=== PATIENT | female | born 1995 | race Caucasian/White ===

== ENCOUNTER 2017-05-19 04:52 | Inpatient (IN) | payer BC ==
--- NOTE | 2017-05-15 10:31 | PCM.LDHP ---
L&D History of Present Illness - General Date of Service: 05/14/17 Admit Problem/Dx: Admission Diagnosis/Problem Admission Diagnosis/Problem Source of Information: Patient History Limitations: Reports: No Limitations - History of Present Illness Introduction:: 22 y/o SURY 05/24/17 EGA 38w4d and at DOS EGA 39w2d. GBS negative Patient has history of anemia at at 03/04/17 H/H 10.8/32.0 repeat H/H 04/23/17 29.4/9.9 and repeat 05/14/17 H/H 11.1/33.0platelets [id number]. Plan repeat CS Friday Improves with: Reports: None Worsens with: Reports: None Associated Symptoms: Reports: N - Related Data Allergies/Adverse Reactions: Allergies Allergy/AdvReac Type Severity Reaction Status Date / Time azithromycin Allergy Hives Verified 10/18/15 10:45 Home Medications: Home Meds Multivitamin with Minerals [Multiple Vitamin] 1 tab PO DAILY 02/20/15 [History] Acetaminophen [Tylenol] 325 mg PO Q6H PRN #50 tab 10/18/15 [Rx] Hydrocodone/Acetaminophen [Matthews 5-325 Tablet] 1 - 2 each PO Q6H PRN #15 tablet 10/18/15 [Rx] Ibuprofen [Motrin] 200 - 600 mg PO Q6H PRN #50 tab 10/18/15 [Rx] Past Medical History Other HEENT History: glasses : 4 Para: 1 (1021) LMP (Approximate): Social & Family History - Tobacco Use Smoking Status *Q: Current Every Day Smoker Years of Tobacco use: 3 Packs/Tins Daily: 0.5 - Alcohol Use Days Per Week of Alcohol Use: 0 - Recreational Drug Use Recreational Drug Use: No Drug Use in Last 12 Months: No H&P Review of Systems - Review of Systems: Review Of Systems: See Below General: Reports: No Symptoms HEENT: Reports: No Symptoms Pulmonary: Reports: No Symptoms Cardiovascular: Reports: No Symptoms Gastrointestinal: Reports: No Symptoms Genitourinary: Reports: No Symptoms Musculoskeletal: Reports: No Symptoms Skin: Reports: No Symptoms Psychiatric: Reports: No Symptoms Neurological: Reports: No Symptoms Hematologic/Lymphatic: Reports: No Symptoms Immunologic: Reports: No Symptoms L&D Exam - Exam Exam: See Below - Vital Signs Weight: 170 lb - OB Specific Fundal Height In cm: 38 Movement: Active Heart Tones: Present Heart Tones per Min: 158 Heart Rate (FHR) Variability: Moderate (6-25 bmp) Presentation: Vertex Estimated Weight: 8.0 - Exam General: Alert, Oriented HEENT: Mucosa Moist & [place] Neck: Supple, Trachea Midline Lungs: Clear to Auscultation, Normal Respiratory Effort Cardiovascular: Regular Rate, Regular Rhythm Abdomen: Normal Bowel Sounds, Soft, Pelvis Stable Genitourinary: Normal external exam Back Exam: Normal Inspection, Full Range of Motion Extremities: Normal Inspection Skin: Warm, Dry, Intact Psychiatric: Alert, Normal Affect, Normal Mood - Problem List (1) 38 weeks gestation of SNOMED Code(s): 49198492 ICD Code: Z3A.38 - 38 WEEKS GESTATION OF Status: Acute (2) Previous delivery affecting SNOMED Code(s): 171596753, 198575483 ICD Code: O34.219 - MATERNAL CARE FOR UNSP TYPE SCAR FROM PREVIOUS DEL Status: Acute (3) 39 weeks gestation of SNOMED Code(s): 79203864 ICD Code: Z3A.39 - 39 WEEKS GESTATION OF Status: Acute Problem Details: will be EGA 39w2d day of surgery Problem List Initiated/Reviewed/Updated: No Assessment/Plan Comment:: Plan repeat CS Friday05/19/2017 at EGA 39w2d SURY 05/24/2017
[~2017-05-19 04:52] MED LIST: Sodium Chloride 0.9% 10 ML Syringe FLUSH PRN
[2017-05-19] MEDS ORDERED: Oxytocin/Lactated Ringers 10 UNIT/1,000 ML BAG IV SCH (05:00)
[2017-05-19] MEDS ORDERED: Lactated Ringers 1,000 ML IV SCH (05:00)
[2017-05-19] MEDS ORDERED: Citric Acid/Sodium Citrate Solution 30 ML Cup PO ONE (05:00)
[2017-05-19] MEDS ORDERED: Oxytocin 10 Units/1 ML SDV IV ONE (05:00)
[2017-05-19] MEDS ORDERED: ceFAZolin 2 GM in Premix Bag 1 BAG IV ONE (05:00)
[2017-05-19] MEDS ORDERED: Metoclopramide 10 MG/2 ML SDV IVPUSH ONE (05:00)
[2017-05-19] MEDS ORDERED: Bupivacaine 0.5% 30 ML SDV ONE (06:08)
[2017-05-19] MEDS ORDERED: Morphine PF 10 MG/10 ML SDV ONE (07:31)
[2017-05-19] MEDS ORDERED: ceFAZolin 1 GM Vial ONE (07:43)
[2017-05-19] MEDS ORDERED: Oxytocin 10 Units/1 ML SDV ONE (07:50)
[2017-05-19] MEDS ORDERED: Phenylephrine/Normal Saline 100 MCG/ML 10 ML Syringe ONE (07:50)
[2017-05-19] MEDS ORDERED: Lactated Ringers 1,000 ML ONE (08:09)
--- NOTE | 2017-05-19 08:17 | PCM.OPNOTE ---
- General Post-Op/Procedure Note Date of Surgery/Procedure: 05/19/17 Operative Procedure(s): Repeat section 86908 Pre Op Diagnosis: Previous section 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 Anesthesia Technique: Spinal Primary Surgeon: Nba Roman Secondary Surgeon: Nicole Gould Anesthesia Provider: Pierce Almonte Fluid Replacement, Intraop: 1,600 Output, Urine Amount: 460 EBL in mLs: 650 Drain/Tube Comments:: Byers catheter to gravity drainage Complications: None Condition: Good Free Text/Narrative:: Patient was transported to operating room #1 and placed under spinal anesthesia in the supine position with wedge under right hip right flank SCDs in place and functioning prior surgery patient received Ancef 2 g intravenously prior to surgery timeout performed confirming name did worsen plan procedure as repeat section adequate level of anesthesia was confirmed after preparing and draping the patient in sterile fashion and brought to the operating room 20 mL of 0.25% Marcaine injected in the subcuticular space in the area of the planned incision the old incision was marked incision made and care was sharp section to into the anterior fascia peritoneal cavity was entered without difficulty but flap created pushed caudad low segment transverse performed delivering a female liveborn on Friday05/19/17 at 0744 hrs. Apgars 9/ 9 [address] Branham factory maintenance manager in attendance. Cord blood collected from three-vessel cord placenta removed manually and the endometrial cavity inspected additional remnants of membranes removed cervical patency assured vaginal pack and sharp count correct 1 uterine incision closed in 2 layers first layer running locking suture of 0 Monocryl second layer horizontal imbricating layer modified Jose Alejandro sponge needle pack asthma sharp count correct 2 both ovaries and tubes were normal clot screen from the gutters and cul-de- sac the uterus replaced into the abdominal cavity and the abdominal cavity closed with #1 Prolene subcutaneous tissue irrigated and electrocautery used to free up scar tissue from the old incision and the skin was closed with 3-0 Monocryl on Thai needle Dermabond Prineo applied clots cleaned from the vagina and patient transported to postanesthesia care unit in satisfactory condition no blood transfusions were required
--- NOTE | 2017-05-19 08:31 | PCM.POSTAN ---
POST ANESTHESIA ASSESSMENT - MENTAL STATUS Mental Status: alert, oriented - VITAL SIGNS Pulse Rate: 98 SaO2: 99 Resp Rate: 11 Blood Pressure: 110/68 Temperature: 36.6 C - RESPIRATORY Respiratory Status: respiratory rate WNL, airway patent, O2 saturation stable - CARDIOVASCULAR CV Status: pulse rate WNL, blood pressure stable - GASTROINTESTINAL GI Status: no symptoms - PAIN Pain Score: 0 - POST OP HYDRATION Hydration Status: adequate & stable
--- NOTE | 2017-05-19 08:39 | PCM.PREANE ---
Preanesthetic Assessment - Procedure Proposed Procedure: Repeat - Anesthesia/Transfusion/Family Hx Anesthesia History: Prior Anesthesia Without Reaction Family History of Anesthesia Reaction: No Transfusion History: No Prior Transfusion(s) - Review of Systems General: No Symptoms Pulmonary: No Symptoms Cardiovascular: No Symptoms Gastrointestinal: No symptoms Neurological: No Symptoms Other: Reports: None - Physical Assessment NPO Status Date: 05/19/17 NPO Status Time: 00:00 Pulse: 87 O2 Sat by Pulse Oximetry: 98 Respiratory Rate: 20 Blood Pressure: 125/77 Temperature: 36.6 C Vital Signs: Last Vital Signs Temp 36.6 C 05/19/17 08:31 Pulse 98 05/19/17 08:31 Resp 11 L 05/19/17 08:31 BP 110/68 05/19/17 08:31 Pulse Ox 99 05/19/17 08:31 Height: 1.78 m Weight: 79.379 kg ASA Class: 2 Mental Status: Alert & Oriented x3 Airway Class: Mallampati = 2 Dentition: Reports: Normal Dentition Thyro-Mental Finger Breadths: 3 Mouth Opening Finger Breadths: 3 ROM/Head Extension: Other Lungs: Clear to auscultation Cardiovascular: Regular Rate, Regular Rhythm, No Murmurs - Lab Values: Laboratory Last Values Blood Type O POSITIVE 05/19/17 05:06 Gel Antibody Screen Negative 05/19/17 05:06 CBC 05/14/17 WBC - 18.5 Hgb - 11.1 HCT - 33 PLT - 355 - Allergies Allergies/Adverse Reactions: Allergies Allergy/AdvReac Type Severity Reaction Status Date / Time azithromycin Allergy Hives Verified 10/18/15 10:45 - Blood Blood Available: No - Anesthesia Plan Pre-Op Medication Ordered: Antacids (reglan/bicitra) - Acknowledgements Anesthesia Type Planned: Spinal Pt an Appropriate Candidate for the Planned Anesthesia: Yes Alternatives and Risks of Anesthesia Discussed w Pt/Guardian: Yes Pt/Guardian Understands and Agrees with Anesthesia Plan: Yes PreAnesthesia Questionnaire HEENT History: Reports: Other (See Below) Other HEENT History: wears glasses 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: , 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 - Past Surgical History Head Surgeries/Procedures: Reports: None HEENT Surgical History: Reports: None Female Surgical History: Reports: Section, D&C - SUBSTANCE USE Smoking Status *Q: Former Smoker (Quit within last month after 5 yr hx of 1/2- 1ppd) Tobacco Use Within Last Twelve Months: Cigarettes Second Hand Smoke Exposure: No Days Per Week of Alcohol Use: 0 Recreational Drug Use History: No - HOME MEDS Home Medications: Home Meds Ferrous Sulfate [Iron] 325 mg PO DAILY 05/19/17 [History] Vits #90/Iron Fum/FA [ Formula] 1 each PO DAILY 05/19/17 [ History] - CURRENT (IN HOUSE) MEDS Current Meds: Current Medications Lactated Ringer's (Ringers, Lactated) 1,000 mls @ 125 mls/hr IV ASDIRECTED BRIGETTE Last Admin: 05/19/17 05:30 Dose: 125 mls/hr Oxytocin/Lactated Ringer's (Pitocin In Lr 10 Units/1,000 Ml) 10 unit in 1,000 mls @ 500 mls/hr IV TITRATE BRIGETTE PRN Reason: Protocol Ketorolac Tromethamine (Toradol) 30 mg IVPUSH ONETIME [facility] Sodium Chloride (Saline Flush) 10 ml FLUSH ASDIRECTED PRN PRN Reason: Keep Vein Open Discontinued Medications Bupivacaine HCl (Marcaine 0.5%) Confirm Administered Dose 30 ml .ROUTE .STK-MED ONE Stop: 05/19/17 06:09 Cefazolin Sodium (Ancef) Confirm Administered Dose 2 gm .ROUTE .STK-MED ONE Stop: 05/19/17 07:44 Citric Acid/Sodium Citrate (Bicitra Solution) 30 ml PO ONETIME ONE Stop: 05/19/17 05:01 Last Admin: 05/19/17 07:12 Dose: 30 ml Cefazolin Sodium/Dextrose 2 gm (/ Premix) 50 mls @ 100 mls/hr IV ONETIME ONE Stop: 05/19/17 05:29 Lactated Ringer's (Ringers, Lactated) Confirm Administered Dose 1,000 mls @ as directed .ROUTE .STK-MED ONE Stop: 05/19/17 08:10 Metoclopramide HCl (Reglan) 10 mg IVPUSH ONETIME ONE Stop: 05/19/17 05:01 Last Admin: 05/19/17 07:12 Dose: 10 mg Morphine Sulfate (Duramorph Pf) Confirm Administered Dose 10 mg .ROUTE .STK-MED ONE Stop: 05/19/17 07:32 Oxytocin (Pitocin) 10 unit IV ONETIME ONE Stop: 05/19/17 05:01 Oxytocin (Pitocin) Confirm Administered Dose 10 unit .ROUTE .STK-MED ONE Stop: 05/19/17 07:51 Phenylephrine HCl (Phenylephrine In Ns 100 Mcg/Ml) Confirm Administered Dose 1 mg .ROUTE .STK-MED ONE Stop: 05/19/17 07:51
[2017-05-19] MEDS ORDERED: Ketorolac 30 MG/ML SDV IVPUSH SCH (08:45)
[2017-05-19] MEDS ORDERED: diphenhydrAMINE 50 MG/ML SDV IVPUSH PRN (09:36)
[2017-05-19] MEDS ORDERED: ePHEDrine 50 MG/ML SDV IVPUSH PRN (09:36)
[2017-05-19] MEDS ORDERED: Naloxone 0.4 MG/ML SDV IVPUSH PRN (09:36)
[2017-05-19] MEDS ORDERED: Sodium Chloride 0.9% 10 ML Syringe FLUSH PRN (09:36)
[2017-05-19] MEDS ORDERED: Acetaminophen 325 MG Tab PO PRN (09:36)
[2017-05-19] MEDS ORDERED: Dextrose 5%-0.45% NaCl 1,000 ML IV SCH (09:36)
[2017-05-19] MEDS ORDERED: Dextrose 5%-Lactated Ringers 1,000 ML IV SCH (09:36)
[2017-05-19] MEDS ORDERED: Lanolin 100% Cream 7 GM Tube TOP PRN (09:36)
[2017-05-19] MEDS ORDERED: Ondansetron 4 MG/2 ML SDV IV PRN (09:36)
[2017-05-19] MEDS: Ketorolac 30 MG/ML SDV IVPUSH SCH ×2 (15:10→21:50)
[2017-05-19] MEDS: Simethicone 80 MG Tab.Chew PO SCH ×4 (15:15→23:54)
[2017-05-20] MEDS: Acetaminophen/oxyCODONE 325-5 MG Tab PO PRN ×5 (00:03→19:28)
[2017-05-20] MEDS: Ketorolac 30 MG/ML SDV IVPUSH SCH (02:53)
[2017-05-20] MEDS: Docusate Sodium 100 MG Cap PO PRN ×2 (06:00→19:28)
--- NOTE | 2017-05-20 08:39 | PCM48HPAN ---
Post Anesthesia Note - EVALUATION WITHIN 48HRS OF ANESTHETIC Vital Signs in Normal Range: Yes Patient Participated in Evaluation: Yes Respiratory Function Stable: Yes Airway Patent: Yes Cardiovascular Function Stable: Yes Hydration Status Stable: Yes Pain Control Satisfactory: Yes Nausea and Vomiting Control Satisfactory: Yes Mental Status Recovered: Yes - COMMENTS/OBSERVATIONS Free Text/Narrative:: Pt reports doing well as is baby. Has some moderate incisional discomfort this morning after spinal morphine has worn off. ambulating, taking p.o., using restroom, no fever, chills, nausea, or vomiting. no pain at spinal site, and spinal has completely resolved
[2017-05-20] MEDS: Simethicone 80 MG Tab.Chew PO SCH ×4 (09:54→22:58)
[2017-05-20] MEDS: Ibuprofen 600 MG Tab PO PRN ×3 (11:41→23:38)
--- NOTE | 2017-05-20 12:34 | PCM.SN ---
- Free Text/Narrative Note: POD#1 Afebrile, breast feeding, incision normal, no heavy vaginal bleeding no leg cramping.
[2017-05-21] MEDS: Acetaminophen/oxyCODONE 325-5 MG Tab PO PRN ×2 (02:52→10:13)
[2017-05-21] MEDS: Ibuprofen 600 MG Tab PO PRN (05:33)
[2017-05-21 05:40] VITALS: BP 117/78
--- NOTE | 2017-05-21 07:31 | PCM.DCSUM1 ---
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 Anesthesia Technique: Spinal Primary Surgeon: Nba Roman Secondary Surgeon: Nicole Gould Anesthesia Provider: Pierce Almonte Fluid Replacement, Intraop: 1,600 Output, Urine Amount: 460 EBL in mLs: 650 Drain/Tube Comments:: Byers catheter to gravity drainage Complications: None Condition: Good Free Text/Narrative:: Patient was transported to operating room #1 and placed under spinal anesthesia in the supine position with wedge under right hip right flank SCDs in place and functioning prior surgery patient received Ancef 2 g intravenously prior to surgery timeout performed confirming name did worsen plan procedure as repeat section adequate level of anesthesia was confirmed after preparing and draping the patient in sterile fashion and brought to the operating room 20 mL of 0.25% Marcaine injected in the subcuticular space in the area of the planned incision the old incision was marked incision made and care was sharp section to into the anterior fascia peritoneal cavity was entered without difficulty but flap created pushed caudad low segment transverse performed delivering a female liveborn on Friday05/19/17 at 0744 hrs. Apgars 9/ 9 weight [address] Branham crutch maker in attendance. Cord blood collected from three-vessel cord placenta removed manually and the endometrial cavity inspected additional remnants of membranes removed cervical patency assured vaginal pack and sharp count correct 1 uterine incision closed in 2 layers first layer running locking suture of 0 Monocryl second layer horizontal imbricating layer modified Jose Alejandro sponge needle pack asthma sharp count correct 2 both ovaries and tubes were normal clot screen from the gutters and cul-de- sac the uterus replaced into the abdominal cavity and the abdominal cavity closed with #1 Prolene subcutaneous tissue irrigated and electrocautery used to free up scar tissue from the old incision and the skin was closed with 3-0 Monocryl on Thai needle Dermabond Prineo applied clots cleaned from the vagina and patient transported to postanesthesia care unit in satisfactory condition no blood transfusions were required HPI Initial Comments: [facility] Post-Op/Procedure Note Patient Name: INGA CORONA Date of : 89 Patient Status: Inpatient Attending Provider: Nba Roman Date: 05/19/17 08:11 Initialization Date: 05/19/17 08:11 - General Post-Op/Procedure Note Date of Surgery/Procedure: 05/19/17 Operative Procedure(s): Repeat section 72538 Pre Op Diagnosis: Previous section 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 Anesthesia Technique: Spinal Primary Surgeon: Nba Roman Secondary Surgeon: Nicole Gould Anesthesia Provider: Pierce Almonte Fluid Replacement, Intraop: 1,600 Output, Urine Amount: 460 EBL in mLs: 650 Drain/Tube Comments:: Byers catheter to gravity drainage Complications: None Condition: Good Free Text/Narrative:: Patient was transported to operating room #1 and placed under spinal anesthesia in the supine position with wedge under right hip right flank SCDs in place and functioning prior surgery patient received Ancef 2 g intravenously prior to surgery timeout performed confirming name did worsen plan procedure as repeat section adequate level of anesthesia was confirmed after preparing and draping the patient in sterile fashion and brought to the operating room 20 mL of 0.25% Marcaine injected in the subcuticular space in the area of the planned incision the old incision was marked incision made and care was sharp section to into the anterior fascia peritoneal cavity was entered without difficulty but flap created pushed caudad low segment transverse performed delivering a female liveborn on Friday05/19/17 at 0744 hrs. Apgars 9/ 9 weight [address] Branham crutch maker in attendance. Cord blood collected from three-vessel cord placenta removed manually and the endometrial cavity inspected additional remnants of membranes removed cervical patency assured vaginal pack and sharp count correct 1 uterine incision closed in 2 layers first layer running locking suture of 0 Monocryl second layer horizontal imbricating layer modified Jose Alejandro sponge needle pack asthma sharp count correct 2 both ovaries and tubes were normal clot screen from the gutters and cul-de- sac the uterus replaced into the abdominal cavity and the abdominal cavity closed with #1 Prolene subcutaneous tissue irrigated and electrocautery used to free up scar tissue from the old incision and the skin was closed with 3-0 Monocryl on Thai needle Dermabond Prineo applied clots cleaned from the vagina and patient transported to postanesthesia care unit in satisfactory condition no blood transfusions were required Brief History: [facility] . Post-Op/Procedure Note. [facility]: [id number]. Date of : Patient Status: Inpatient. Attending Provider: Nba Romanount Number: [id number]. Date: 05/19/17 08:11Initialization Date: 05/19/17 08:11. - General Post-Op/Procedure Note. Date of Surgery/Procedure: 05/19/17. Operative Procedure(s): Repeat section 93886. Pre Op Diagnosis: Previous section. 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 Anesthesia Technique: Spinal. Primary Surgeon: Nba Roman. Secondary Surgeon: Nicole Gould. Anesthesia Provider: Pierce Almonte. Fluid Replacement, Intraop: 1,600. Output, Urine Amount: 460. EBL in mLs: 650. Drain/Tube Comments:: Byers catheter to gravity drainage. Complications: None. Condition: Good. Free Text/Narrative:: Patient was transported to operating room #1 and placed under spinal anesthesia in the supine position with wedge under right hip right flank SCDs in place and functioning prior surgery patient received Ancef 2 g intravenously prior to surgery timeout performed confirming name did worsen plan procedure as repeat section adequate level of anesthesia was confirmed after preparing and draping the patient in sterile fashion and brought to the operating room 20 mL of 0.25% Marcaine injected in the subcuticular space in the area of the planned incision the old incision was marked incision made and care was sharp section to into the anterior fascia peritoneal cavity was entered without difficulty but flap created pushed caudad low segment transverse performed delivering a female liveborn on Friday05/19/17 at 0744 hrs. Apgars 9/9 weight [address] Branham crutch maker in attendance. Cord blood collected from three-vessel cord placenta removed manually and the endometrial cavity inspected additional remnants of membranes removed cervical patency assured vaginal pack and sharp count correct 1 uterine incision closed in 2 layers first layer running locking suture of 0 Monocryl second layer horizontal imbricating layer modified Jose Alejandro sponge needle pack asthma sharp count correct 2 both ovaries and tubes were normal clot screen from the gutters and cul-de-sac the uterus replaced into the abdominal cavity and the abdominal cavity closed with #1 Prolene subcutaneous tissue irrigated and electrocautery used to free up scar tissue from the old incision and the skin was closed with 3-0 Monocryl on Thai needle Dermabond Prineo applied clots cleaned from the vagina and patient transported to postanesthesia care unit in satisfactory condition no blood transfusions were required - Discharge Data Discharge Date: 05/21/17 Discharge Disposition: Home, Self-Care 01 Condition: Good - Discharge Diagnosis/Problem(s) (1) 38 weeks gestation of SNOMED Code(s): 26722485 ICD Code: Z3A.38 - 38 WEEKS GESTATION OF Status: Acute Current Visit: No (2) Previous delivery affecting SNOMED Code(s): 983922914, 969987562 ICD Code: O34.219 - MATERNAL CARE FOR UNSP TYPE SCAR FROM PREVIOUS DEL Status: Acute Current Visit: Yes (3) 39 weeks gestation of SNOMED Code(s): 76236549 ICD Code: Z3A.39 - 39 WEEKS GESTATION OF Status: Acute Current Visit: Yes Problem Details: will be EGA 39w2d day of surgery - Patient Summary/Data Operative Procedure(s) Performed: Repeat section 97819 Complications: none Consults: none Hospital Course: uneventful - Patient Instructions Diet: Heart Healthy Diet Driving: Do Not Drive (2 weeks) Showering/Bathing: May Shower, No Tub Bathing/Swimming (x6 weeks) Wound/Incision Care: Keep Operative Site/Wound Site Clean and Dry Notify Provider of: Fever, Increased Pain, Swelling and Redness, Drainage, Nausea and/or Vomiting - Discharge Plan Prescriptions/Med Rec: Ibuprofen [Motrin] 600 mg PO Q6H #50 tablet oxyCODONE HCl/Acetaminophen [Percocet 5-325 mg Tablet] 1 each PO Q8H #15 tablet Home Medications: Home Meds Ferrous Sulfate [Iron] 325 mg PO DAILY 05/19/17 [History] Vit 90/Iron Fum/Folic [ Formula] 1 each PO DAILY 05/19/17 [ History] Acetaminophen [Tylenol] 650 mg PO Q4H PRN #0 tablet 05/21/17 [Rx] Acetaminophen/oxyCODONE [Percocet 325-5 MG] 1 tab PO Q8H PRN #15 tablet [Rx] Docusate Sodium [Colace] 100 mg PO Q12H PRN #0 cap 05/21/17 [Rx] Ibuprofen [IJD: Ibuprofen] 600 mg PO Q6H PRN #50 tablet 05/21/17 [Rx] Ibuprofen [Motrin] 600 mg PO Q6H #50 tablet 05/21/17 [Rx] oxyCODONE HCl/Acetaminophen [Percocet 5-325 mg Tablet] 1 each PO Q8H #15 tablet 05/21/17 [Rx] Patient Handouts: Smoking Cessation, Tips for Success, [id number]-Coxn, Smoking Hazards Referrals: Nba Roman MD [Physician] - (4 weeks 06/16/2017 has appointment) - Discharge Summary/Plan Comment DC Time >30 min.: No - Patient Data Vitals - Most Recent: Last Vital Signs Temp 97.3 F 05/21/17 05:35 Pulse 65 05/21/17 05:35 Resp 12 05/21/17 04:00 BP 117/78 05/21/17 05:35 Pulse Ox 98 05/21/17 05:35 Weight - Most Recent: 175 lb I&O - Last 24 hours: Intake & Output 05/20/17 05/21/17 05/21/17 22:59 06:59 14:59 Intake Total 420 Balance 420 Med Orders - Current: Current Medications Acetaminophen (Tylenol) 650 mg PO Q4H PRN PRN Reason: mild pain or fever Docusate Sodium (Colace) 100 mg PO Q12H PRN PRN Reason: Constipation Last Admin: 05/20/17 19:28 Dose: 100 mg Emollient Ointment (Lansinoh Hpa) 0 gm TOP ASDIRECTED PRN PRN Reason: Sore Nipples Last Admin: 05/20/17 20:11 Dose: 7 gm Ibuprofen (Motrin) 600 mg PO Q6H PRN PRN Reason: mild pain or fever Last Admin: 05/21/17 05:33 Dose: 600 mg Oxycodone/Acetaminophen (Percocet 325-5 Mg) 2 tab PO Q4H PRN PRN Reason: Pain (moderate 4-6) Last Admin: 05/21/17 02:52 Dose: 2 tab Simethicone (Simethicone) 80 mg PO PCBED [facility] Last Admin: 05/20/17 22:58 Dose: 80 mg Sodium Chloride (Saline Flush) 10 ml FLUSH ASDIRECTED PRN PRN Reason: Keep Vein Open Discontinued Medications Bupivacaine HCl (Marcaine 0.5%) Confirm Administered Dose 30 ml .ROUTE .STK-MED ONE Stop: 05/19/17 06:09 Last Admin: 05/19/17 07:40 Dose: 20 ml Cefazolin Sodium (Ancef) Confirm Administered Dose 2 gm .ROUTE .STK-MED ONE Stop: 05/19/17 07:44 Citric Acid/Sodium Citrate (Bicitra Solution) 30 ml PO ONETIME ONE Stop: 05/19/17 05:01 Last Admin: 05/19/17 07:12 Dose: 30 ml Diphenhydramine HCl (Benadryl) 25 mg IVPUSH Q6H PRN PRN Reason: Itching or Nausea Ephedrine Sulfate (Ephedrine Sulfate) 5 mg IVPUSH SEECOMMENT PRN PRN Reason: Other Lactated Ringer's (Ringers, Lactated) 1,000 mls @ 125 mls/hr IV ASDIRECTED [facility] Last Admin: 05/19/17 05:30 Dose: 125 mls/hr Oxytocin/Lactated Ringer's (Pitocin In Lr 10 Units/1,000 Ml) 10 unit in 1,000 mls @ 500 mls/hr IV TITRATE [facility] PRN Reason: Protocol Cefazolin Sodium/Dextrose 2 gm (/ Premix) 50 mls @ 100 mls/hr IV ONETIME ONE Stop: 05/19/17 05:29 Last Admin: 05/20/17 10:21 Dose: Not Given Lactated Ringer's (Ringers, Lactated) Confirm Administered Dose 1,000 mls @ as directed .ROUTE .STK-MED ONE Stop: 05/19/17 08:10 Dextrose/Sodium Chloride (Dextrose 5%-1/2 Ns) 1,000 mls @ 125 mls/hr IV ASDIRECTED BRIGETTE Dextrose/Lactated Ringer's (Dextrose 5%-Lactated Ringers) 1,000 mls @ 125 mls/ hr IV ASDIRECTED [facility]TE Stop: 05/19/17 17:35 Last Admin: 05/19/17 10:35 Dose: 125 mls/hr Ketorolac Tromethamine (Toradol) 30 mg IVPUSH ONETIME BR[facility]ETTE Stop: 05/19/17 12:00 Last Admin: 05/19/17 08:38 Dose: 30 mg Ketorolac Tromethamine (Toradol) 30 mg IVPUSH Q6H [place]ETTE Stop: 05/20/17 03:01 Last Admin: 05/20/17 02:53 Dose: 30 mg Metoclopramide HCl (Reglan) 10 mg IVPUSH ONETIME ONE Stop: 05/19/17 05:01 Last Admin: 05/19/17 07:12 Dose: 10 mg Morphine Sulfate (Duramorph Pf) Confirm Administered Dose 10 mg .ROUTE .STK-MED ONE Stop: 05/19/17 07:32 Naloxone HCl (Narcan) 0.1 mg IVPUSH SEECOMMENT PRN PRN Reason: Respiratory Depression Ondansetron HCl (Zofran) 4 mg IV Q8H PRN PRN Reason: Nausea/Vomiting Oxytocin (Pitocin) 10 unit IV ONETIME ONE Stop: 05/19/17 05:01 Last Admin: 05/20/17 10:21 Dose: Not Given Oxytocin (Pitocin) Confirm Administered Dose 10 unit .ROUTE .STK-MED ONE Stop: 05/19/17 07:51 Phenylephrine HCl (Phenylephrine In Ns 100 Mcg/Ml) Confirm Administered Dose 1 mg .ROUTE .STK-MED ONE Stop: 05/19/17 07:51 Sodium Chloride (Saline Flush) 10 ml FLUSH ASDIRECTED PRN PRN Reason: Keep Vein Open *Q Meaningful Use (DIS) - VTE *Q VTE Criteria *Q: - Stroke *Q Stroke Criteria *Q: - AMI *Q AMI Criteria *Q:
[2017-05-21] MEDS: Simethicone 80 MG Tab.Chew PO SCH (10:12)
== END 2017-05-21 10:25 | disposition home or self-care (01) | DRG 540 ==
LOC: JD.OB 04:52
PROVIDERS: ADMIT Obstetrics & Gynecology; ATTEND Obstetrics & Gynecology
PROC: 10D00Z1 Extraction of Products of Conception, Low, Open Approach (ICD-10-PCS; principal; 2017-05-19)
DX: O34.211 Maternal care for low transverse scar from previous cesarean delivery (principal); O99.334 Smoking (tobacco) complicating childbirth; O99.02 Anemia complicating childbirth; D64.9 Anemia, unspecified; F17.200 Nicotine dependence, unspecified, uncomplicated; Z3A.39 39 weeks gestation of pregnancy; Z37.0 Single live birth
CPT/HCPCS: 01961; 36415; 85025; 86850; 86900; 86901; 94762; A9270-GY; J0690; J1885; J2270; J2590; J2765; J7042; J7120

== ENCOUNTER 2017-08-01 18:54 | Emergency (ER) | payer BC ==
[2017-08-01 19:10] VITALS: BP 124/87
[2017-08-01] MEDS ORDERED: Sodium Chloride 0.9% 1,000 ML IV SCH (19:45)
--- NOTE | 2017-08-01 20:57 | EDM.PDOC ---
ED HPI GENERAL MEDICAL PROBLEM - General Chief Complaint: ENT Problem Stated Complaint: EAR PAINS RIGHT HEADACHE Time Seen by Provider: 08/01/17 19:09 Source of Information: Reports: Patient History Limitations: Reports: No Limitations - History of Present Illness INITIAL COMMENTS - FREE TEXT/NARRATIVE: This is a 22-year-old female. She states that on Friday she went to the chiropractor and had her back adjusted and neck adjusted. morning she woke up with a headache took some ibuprofen felt better but then the headache seemed to get worse and was pounding. When she went to take a shower she says she blacked out but she did not fall she caught herself did not seem to jerk her neck her head but her headache got worse. Then she noted that her right ear has some shooting pain that goes from the ear down into the anterior neck area about senior living down the neck almost following the eustachian tube route. Because of the symptoms and the pounding headache she comes to the ER for evaluation. She states that the ibuprofen is not helping her headache any longer. She denies any fever or chills denies any cough is been no nausea vomiting or diarrhea. Treatments DISTRICT OR DISTRICT OFFICE DIRECTOR: Reports: NSAIDS Right Ear Pain Score (Numeric/FACES): 6 - Related Data Allergies Allergy/AdvReac Type Severity Reaction Status Date / Time azithromycin Allergy Hives Verified 10/18/15 10:45 Home Meds: Home Meds Ferrous Sulfate [Iron] 325 mg PO DAILY 05/19/17 [History] Vit 90/Iron Fum/Folic [ Formula] 1 each PO DAILY 05/19/17 [ History] Acetaminophen [Tylenol] 650 mg PO Q4H PRN #0 tablet 05/21/17 [Rx] Acetaminophen/oxyCODONE [Percocet 325-5 MG] 1 tab PO Q8H PRN #15 tablet [Rx] Docusate Sodium [Colace] 100 mg PO Q12H PRN #0 cap 05/21/17 [Rx] Ibuprofen [IJD: Ibuprofen] 600 mg PO Q6H PRN #50 tablet 05/21/17 [Rx] Ibuprofen [Motrin] 600 mg PO Q6H #50 tablet 05/21/17 [Rx] oxyCODONE HCl/Acetaminophen [Percocet 5-325 mg Tablet] 1 each PO Q8H #15 tablet 05/21/17 [Rx] Past Medical History - Past Health History Medical/Surgical History: Denies Medical/Surgical History HEENT History: Reports: Other (See Below) Other HEENT History: wears glasses 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: , 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 - Past Surgical History Head Surgeries/Procedures: Reports: None HEENT Surgical History: Reports: None Female Surgical History: Reports: Section, D&C Social & Family History - Family History Family Medical History: Noncontributory - Tobacco Use Smoking Status *Q: Current Every Day Smoker Years of Tobacco use: 5 Packs/Tins Daily: 0.5 Used Tobacco, but Quit: No Second Hand Smoke Exposure: No - Caffeine Use Caffeine Use: Reports: Coffee Other Caffeine Use: 1 per day - Alcohol Use Days Per Week of Alcohol Use: 0 - Recreational Drug Use Recreational Drug Use: No Drug Use in Last 12 Months: No ED ROS ENT - Review of Systems Review Of Systems: See Below Constitutional: Denies: Fever, Chills HEENT: Reports: Other (As per history of present illness) Respiratory: Reports: No Symptoms Cardiovascular: Reports: No Symptoms Endocrine: Reports: No Symptoms GI/Abdominal: Reports: No Symptoms : Reports: No Symptoms Musculoskeletal: Reports: No Symptoms Skin: Reports: No Symptoms Neurological: Reports: No Symptoms Psychiatric: Reports: No Symptoms Hematologic/Lymphatic: Reports: No Symptoms ED EXAM, ENT - Physical Exam Exam: See Below Exam Limited By: No Limitations General Appearance: Alert, WD/WN, No Apparent Distress Eye Exam: Bilateral Eye: Normal Inspection Ears: Normal External Exam, Normal Canal, Normal TMs, Other (The right TM might be slightly bulging but there is no erythema, the TM itself is slightly milky) Nose: Normal Inspection, Normal Mucousa Mouth/Throat: Normal Inspection, Normal Lips, Normal Oropharynx Head: Atraumatic, Normocephalic, Other (Palpation of the head and the scalp reveals no particular tenderness) Neck: Supple, Non-Tender, Other (She has good range of motion of her neck with minimal soreness and movement of her neck does not seem to make her head ache any worse) Respiratory/Chest: No Respiratory Distress, Lungs Clear, Normal Breath Sounds Cardiovascular: Regular Rate, Rhythm, No Murmur GI/Abdominal: Soft, Non-Tender Back: Full Range of Motion Extremities: Normal Inspection, Normal Range of Motion Neurological: Alert, Oriented Psychiatric: Normal Affect, Normal Mood Skin: Warm, Dry Course - Vital Signs Last Recorded V/S: Last Vital Signs Temp 98.1 F 08/01/17 19:09 Pulse 98 08/01/17 19:09 Resp 14 08/01/17 19:09 BP 124/87 08/01/17 19:09 Pulse Ox 94 L 08/01/17 19:09 - Orders/Labs/Meds Orders: Active Orders 24 hr Category Date Time Status Head wo Cont [CT] Stat Exams 08/01/17 19:53 Taken - Radiology Interpretation Free Text/Narrative:: CT scan of her head does not show any acute findings. - Re-Assessments/Exams Free Text/Narrative Re-Assessment/Exam: 08/01/17 20:57 Spoke to the patient regarding the CAT scan results. We will provide something for her headache tonight. I also suggested she get some chlorpheniramine from the pharmacy tomorrow to help open up her right ear and eustachian tube. Departure - Departure Time of Disposition: 20:57 Disposition: Home, Self-Care 01 Condition: Good Clinical Impression: Tension headache, Right ear pain Eustachian tube dysfunction Qualifiers: Laterality: right Qualified Code(s): H69.81 - Other specified disorders of Eustachian tube, right ear - Discharge Information Referrals: PCP,None [Primary Care Provider] - Additional Instructions: Home and sleep as much as possible, take it very easy tomorrow with no strenuous activity, when the pharmacy opens tomorrow go there and get a medicine called chlorpheniramine 12 hour to help open up your eustachian tube to your right ear, continue with Tylenol or ibuprofen as needed, return to the ER if needed - My Orders Last 24 Hours: My Active Orders 08/01/17 19:53 Head wo Cont [CT] Stat - Assessment/Plan Last 24 Hours: My Active Orders 08/01/17 19:53 Head wo Cont [CT] Stat
[2017-08-01] MEDS ORDERED: HYDROmorphone 0.5 MG/0.5 ML Syringe IM ONE (21:00)
--- NOTE | 2017-08-04 18:00 | CT ---
Head CT Technique: Multiple axial sections through the brain were obtained. Intravenous contrast not utilized. Comparison: No previous intracranial imaging is available. Findings: Ventricles along with basal cisterns and sulci over the convexities are within normal limits for the patient's age. No abnormal parenchymal densities are seen. No evidence of intracranial hemorrhage. No midline shift or mass effect is seen. Bone window settings were reviewed which show the visualized sinuses to appear clear. No acute calvarial abnormality is seen. Impression: 1. Nothing acute is identified on noncontrast head CT study. Diagnostic code #1 Agree with preliminary report issued by [facility] ([facility] preliminary report dictated on 08/01/17, 9:34 PM Central Time)
== END 2017-08-01 22:22 | disposition home or self-care (01) ==
LOC: JD.ED 18:54
DX: H69.81 Other specified disorders of Eustachian tube, right ear (principal); G44.209 Tension-type headache, unspecified, not intractable; F17.210 Nicotine dependence, cigarettes, uncomplicated; Z79.899 Other long term (current) drug therapy; Z88.1 Allergy status to other antibiotic agents
CPT/HCPCS: 70450; 96372; 99284; J1170; 99283

== ENCOUNTER 2020-09-25 09:48 | Emergency (ER) | payer BC ==
[2020-09-25] MEDS ORDERED: Sodium Chloride 0.9% 10 ML Syringe FLUSH PRN (10:31)
[2020-09-25] MEDS ORDERED: Metoclopramide 10 MG/2 ML SDV IVPUSH ONE (10:31)
[2020-09-25] MEDS ORDERED: HYDROmorphone 0.5 MG/0.5 ML Syringe IVPUSH ONE (10:32)
[2020-09-25] MEDS ORDERED: diphenhydrAMINE 50 MG/ML SDV IVPUSH ONE (10:32)
[2020-09-25] MEDS ORDERED: Sodium Chloride 0.9% 1,000 ML IV SCH (10:45)
--- NOTE | 2020-09-25 10:55 | EDM.PDOC ---
ED HPI GENERAL MEDICAL PROBLEM - General Chief Complaint: Neuro Symptoms/Deficits Stated Complaint: NUMBNESS R HAND/RIGHT SIDE OF FACE/HEADACHE Time Seen by Provider: 09/25/20 10:24 Source of Information: Reports: Patient History Limitations: Reports: No Limitations - History of Present Illness INITIAL COMMENTS - FREE TEXT/NARRATIVE: The patient presents with a headache and right hand and face numbness. This started today. She has been dropping things because of the numbness. She is AB2 at 16 weeks gestation. She has no fever, chills, cough, congestion, runny nose, chest pain, shortness of breath, abdominal pain, vomiting or dysuria. She has no history of medical problems. Onset: Gradual Duration: Hour(s): Location: Reports: Head Quality: Reports: Sharp Severity: Moderate Improves with: Reports: None Worsens with: Reports: None Associated Symptoms: Reports: Headaches, Nausea/Vomiting. Denies: Chest Pain, Cough, Fever/Chills, Shortness of Breath Headache Pain Score (Numeric/FACES): 5 - Related Data Allergies Allergy/AdvReac Type Severity Reaction Status Date / Time azithromycin Allergy Hives Verified 09/25/20 10:23 Home Meds: Home Meds Ferrous Sulfate [Iron] 325 mg PO DAILY 05/19/17 [History] Vit 90/Iron Fum/Folic [ Formula] 1 each PO DAILY 05/19/17 [History] Acetaminophen [Tylenol] 650 mg PO Q4H PRN #0 tablet 05/21/17 [Rx] Acetaminophen/oxyCODONE [Percocet 325-5 MG] 1 tab PO Q8H PRN #15 tablet 05/21/17 [Rx] Docusate Sodium [Colace] 100 mg PO Q12H PRN #0 cap 05/21/17 [Rx] Ibuprofen [IJD: Ibuprofen] 600 mg PO Q6H PRN #50 tablet 05/21/17 [Rx] Ibuprofen [Motrin] 600 mg PO Q6H #50 tablet 05/21/17 [Rx] oxyCODONE HCl/Acetaminophen [Percocet 5-325 mg Tablet] 1 each PO Q8H #15 tablet 05/21/17 [Rx] Past Medical History - Past Health History Medical/Surgical History: Denies Medical/Surgical History HEENT History: Reports: Other (See Below) Other 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 History: 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 glasses 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: , 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 - Past Surgical History Head Surgeries/Procedures: Reports: None HEENT Surgical History: Reports: None Female Surgical History: Reports: Section, D&C Social & Family History - Family History Family Medical History: Noncontributory - Tobacco Use Tobacco Use Status *Q: Current Every Day Tobacco User Years of Tobacco use: 10 Packs/Tins Daily: 0.4 - Caffeine Use Caffeine Use: Reports: Coffee Other Caffeine Use: 1 per day ED ROS GENERAL - Review of Systems Review Of Systems: See Below Constitutional: Reports: No Symptoms HEENT: Reports: No Symptoms Respiratory: Reports: No Symptoms Cardiovascular: Reports: No Symptoms Endocrine: Reports: No Symptoms GI/Abdominal: Reports: No Symptoms : Reports: No Symptoms Musculoskeletal: Reports: No Symptoms Skin: Reports: No Symptoms Neurological: Reports: Headache, Numbness (right face and right hand) ED EXAM, NEURO - Physical Exam Exam: See Below Exam Limited By: No Limitations General Appearance: Alert, No Apparent Distress Ears: Normal External Exam Nose: Normal Inspection Head Exam: Atraumatic, Normocephalic Neck: Normal Inspection Respiratory/Chest: No Respiratory Distress, Lungs Clear, Normal Breath Sounds Cardiovascular: Regular Rate, Rhythm, No Edema, No Murmur GI/Abdominal: Soft, Non-Tender, No Organomegaly, No Mass Neurological: Alert, No Motor/Sensory Deficits, Oriented x 3 Extremities: Normal Inspection Course - Vital Signs Last Recorded V/S: Last Vital Signs Temp 97.4 F 09/25/20 10:20 Pulse 102 H 09/25/20 10:20 Resp 16 09/25/20 10:20 BP 129/86 09/25/20 10:20 Pulse Ox 100 09/25/20 10:20 - Orders/Labs/Meds Orders: Active Orders 24 hr Category Date Time Status Cardiac Monitoring [RC] . DIRECTED Care 09/25/20 10:31 Active Peripheral IV Care [RC] . DIRECTED Care 09/25/20 10:31 Active Head wo Cont [CT] Stat Exams 09/25/20 10:32 Taken CBC WITH AUTO DIFF [HEME] Stat Lab 09/25/20 10:50 Results Sodium Chloride 0.9% [Normal Saline] 1,000 ml Med 09/25/20 10:45 Active IV .BOLUS Sodium Chloride 0.9% [Saline Flush] Med 09/25/20 10:31 Active 10 ml FLUSH ASDIRECTED PRN ED Antiemetic Medication Reflex [OM.PC] Stat Oth 09/25/20 10:31 Ordered Peripheral IV Insertion Adult [OM.PC] Stat Oth 09/25/20 10:31 Ordered Medication Orders Sodium Chloride (Normal Saline) 1,000 mls @ 1,000 mls/hr IV .BOLUS BRIGETTE Last Admin: 09/25/20 10:57 Dose: 1,000 mls/hr Documented by: GARETT Sodium Chloride (Saline Flush) 10 ml FLUSH ASDIRECTED PRN PRN Reason: Keep Vein Open Last Admin: 09/25/20 10:57 Dose: 10 ml Documented by: GARETT Labs: Laboratory Tests 09/25/20 09/25/20 Range/Units 10:50 10:50 WBC 10.72 H (3.98-10.04) K/mm3 RBC 4.19 (3.98-5.22) M/mm3 Hgb 12.7 (11.2-15.7) gm/dl Hct 37.8 (34.1-44.9) % MCV 90.2 (79.4-94.8) fl MCH 30.3 (25.6-32.2) pg MCHC 33.6 (32.2-35.5) g/dl RDW Std Deviation 39.8 (36.4-46.3) fL Plt Count 323 (182-369) K/mm3 MPV 10.5 (9.4-12.3) fl Neut % (Auto) 73.2 H (34.0-71.1) % Lymph % (Auto) 21.3 (19.3-51.7) % Blount % (Auto) 3.6 L (4.7-12.5) % Eos % (Auto) 1.4 (0.7-5.8) Baso % (Auto) 0.2 (0.1-1.2) % Neut # (Auto) 7.85 H (1.56-6.13) K/mm3 Lymph # (Auto) 2.28 (1.18-3.74) K/mm3 Blount # (Auto) 0.39 H (0.24-0.36) K/mm3 Eos # (Auto) 0.15 (0.04-0.36) K/mm3 Baso # (Auto) 0.02 (0.01-0.08) K/mm3 Sodium 136 (136-145) mEq/L Potassium 3.5 (3.5-5.1) mEq/L Chloride 101 (98-107) mEq/L Carbon Dioxide 23 (21-32) mEq/L Anion Gap 15.5 H (5-15) BUN 5 L (7-18) mg/dL Creatinine 0.5 L (0.55-1.02) mg/dL Est Cr Clr Drug Dosing 190.57 mL/min Estimated GFR (MDRD) > 60 (>60) mL/min BUN/Creatinine Ratio 10.0 L (14-18) Glucose 80 (74-106) mg/dL Calcium 8.9 (8.5-10.1) mg/dL Magnesium 1.8 (1.8-2.4) mg/dl Total Bilirubin 0.2 (0.2-1.0) mg/dL AST 15 (15-37) U/L ALT 23 (14-59) U/L Alkaline Phosphatase 117 H (46-116) U/L Total Protein 7.3 (6.4-8.2) g/dl Albumin 3.2 L (3.4-5.0) g/dl Globulin 4.1 gm/dL Albumin/Globulin Ratio 0.8 L (1-2) Meds: Medications Generic Name Dose Route Start Last Admin Trade Name Freq PRN Reason Stop Dose Admin Sodium Chloride 1,000 mls @ 1,000 mls/hr 09/25/20 10:45 09/25/20 10:57 Normal Saline IV 1,000 mls/hr .BOLUS BRIGETTE Administration Sodium Chloride 10 ml 09/25/20 10:31 09/25/20 10:57 Saline Flush FLUSH 10 ml ASDIRECTED PRN Administration Keep Vein Open Discontinued Medications Generic Name Dose Route Start Last Admin Trade Name Freq PRN Reason Stop Dose Admin Diphenhydramine HCl 50 mg 09/25/20 10:32 09/25/20 10:56 Benadryl IVPUSH 09/25/20 10:33 50 mg ONETIME ONE Administration Hydromorphone HCl 0.5 mg 09/25/20 10:32 09/25/20 10:56 Dilaudid IVPUSH 09/25/20 10:33 0.5 mg ONETIME ONE Administration Metoclopramide HCl 10 mg 09/25/20 10:31 09/25/20 10:56 Reglan IVPUSH 09/25/20 10:32 10 mg ONETIME ONE Administration - Re-Assessments/Exams Free Text/Narrative Re-Assessment/Exam: 09/25/20 10:58 I ordered an IV NS 1L bolus, reglan 10mg IV, benadryl 50mg IV, dilaudid 0.5mg IV, CT of her head and labs. 09/25/20 11:[address] of her head shows nothing acute. Her CBC and CMP look good. Her headache is better. I will discharge her home. Departure - Departure Time of Disposition: 11:55 Disposition: Home, Self-Care 01 Condition: Good Clinical Impression: Migraine Qualifiers: Migraine type: other Status migrainosus presence: without status migrainosus Intractability: not intractable Qualified Code(s): G43.809 - Other migraine, not intractable, without status migrainosus - Discharge Information *PRESCRIPTION DRUG MONITORING PROGRAM REVIEWED*: Not Applicable *COPY OF PRESCRIPTION DRUG MONITORING REPORT IN PATIENT DEVIN: Not Applicable Referrals: Nba Roman MD [Primary Care Provider] - 1 Week Forms: ED Department Discharge, ED Return to Work/School Form Additional Instructions: Go home and rest. Take tylenol for any headache. Follow up with your doctor within a week. Please return if you are worse. Sepsis Event Note (ED) - Evaluation Sepsis Screening Result: No Definite Risk - Focused Exam Vital Signs: Vital Signs Temp Pulse Resp BP Pulse Ox 09/25/20 10:20 97.4 F 102 H 16 129/86 100 - My Orders Last 24 Hours: My Active Orders 09/25/20 10:31 Cardiac Monitoring [RC] . DIRECTED Peripheral IV Care [RC] . DIRECTED Sodium Chloride 0.9% [Saline Flush] 10 ml FLUSH ASDIRECTED PRN ED Antiemetic Medication Reflex [OM.PC] Stat Peripheral IV Insertion Adult [OM.PC] Stat 09/25/20 10:32 Head wo Cont [CT] Stat 09/25/20 10:45 Sodium Chloride 0.9% [Normal Saline] 1,000 ml IV .BOLUS 09/25/20 10:50 CBC WITH AUTO DIFF [HEME] Stat - Assessment/Plan Last 24 Hours: My Active Orders 09/25/20 10:31 Cardiac Monitoring [RC] . DIRECTED Peripheral IV Care [RC] . DIRECTED Sodium Chloride 0.9% [Saline Flush] 10 ml FLUSH ASDIRECTED PRN ED Antiemetic Medication Reflex [OM.PC] Stat Peripheral IV Insertion Adult [OM.PC] Stat 09/25/20 10:32 Head wo Cont [CT] Stat 09/25/20 10:45 Sodium Chloride 0.9% [Normal Saline] 1,000 ml IV .BOLUS 09/25/20 10:50 CBC WITH AUTO DIFF [HEME] Stat
[2020-09-25 12:25] VITALS: BP 108/63; PULSE 70
--- NOTE | 2020-09-28 13:54 | CT ---
PROCEDURE INFORMATION: Exam: CT Head Without Contrast Exam date and time: 09/25/2020 10:39 AM Age: 25 years old Clinical indication: Pain; Numbness / parasthesia; Right; Headache not specified; Additional info: Right arm and hand numbness TECHNIQUE: Imaging protocol: Computed tomography of the head without contrast. COMPARISON: CT Head wo Cont 08/01/2017 8:03 PM FINDINGS: Brain: Normal. No hemorrhage. Unremarkable white matter. No mass effect. Cerebral ventricles: No ventriculomegaly. Bones/joints: Unremarkable. No acute fracture. Paranasal sinuses: Visualized sinuses are unremarkable. No fluid levels. Mastoid air cells: Visualized mastoid air cells are well aerated. Soft tissues: Unremarkable. IMPRESSION: No acute intracranial changes. Thank you for allowing us to participate in the care of your patient. Dictated and Authenticated by: Keo Martin MD 09/25/2020 12:00 PM Central Time ([place] & [place]) MARK
== END 2020-09-25 12:10 | disposition home or self-care (01) ==
LOC: JD.ED 09:48
DX: G43.809 Other migraine, not intractable, without status migrainosus (principal); F17.210 Nicotine dependence, cigarettes, uncomplicated; Z88.1 Allergy status to other antibiotic agents
CPT/HCPCS: 36415; 70450; 80053; 83735; 85025; 96374; 96375; 99284; J1170; J1200; J2765; J7030

== ENCOUNTER 2020-09-26 09:06 | Emergency (ER) | payer BC ==
--- NOTE | 2020-09-26 09:35 | EDM.PDOC ---
ED HPI GENERAL MEDICAL PROBLEM - General Chief Complaint: Headache Stated Complaint: HEADACHE/NUMBNESS IN FACE/16 WKS PG Time Seen by Provider: 09/26/20 10:00 Source of Information: Reports: Patient History Limitations: Reports: No Limitations - History of Present Illness INITIAL COMMENTS - FREE TEXT/NARRATIVE: 25-year-old female presents to the ED with a severe right hemicranial headache. This is the third day that the headache has been present. She states it was there a little bit on Friday, September 23 but settled down with Tylenol. She is known to be approximately 16 weeks . Has had intermittent nausea and vomiting in early . Unable to really eat or drink much for the last 2 days. She was seen through the ED yesterday and had a CT scan of her head performed which was normal. Routine labs were also within normal limits. She got transient relief of headache with Benadryl IV and Dilaudid 0.5 mg IV yesterday. She also received Zofran 4 mg IV. Still has some numbness and tingling particular in the right side of her tongue. She is alert oriented otherwise. She states she is a little weak with her walking. Minimally photophobic. Not prone to migraine headaches per se. Onset: Gradual Onset Date: 09/23/20 Duration: Day(s):, Constant Location: Reports: Head (Diffuse headache primarily right hemicranial at this time.) Quality: Reports: Ache, Throbbing, Other (Pulsating. Patient states for a while she could feel every heartbeat in her head.) Severity: Severe Improves with: Reports: Rest (9 out of 10.) Worsens with: Reports: Other (Worse when she is up and moving.) Associated Symptoms: Reports: Headaches, Loss of Appetite, Malaise, Nausea/Vomiting. Denies: Confusion, Chest Pain, Cough, cough w sputum, Diaphoresis, Fever/Chills, Rash, Seizure (Nausea but no vomiting), Shortness of Breath, Syncope, Weakness Treatments MANAGER OF SECURITY: Reports: Acetaminophen Headache Pain Score (Numeric/FACES): 8 - Related Data Allergies Allergy/AdvReac Type Severity Reaction Status Date / Time azithromycin Allergy Hives Verified 09/25/20 10:23 Home Meds: Home Meds Ferrous Sulfate [Iron] 325 mg PO DAILY 05/19/17 [History] Vit 90/Iron Fum/Folic [ Formula] 1 each PO DAILY 05/19/17 [History] Acetaminophen [Tylenol] 650 mg PO Q4H PRN #0 tablet 05/21/17 [Rx] Docusate Sodium [Colace] 100 mg PO Q12H PRN #0 cap 05/21/17 [Rx] oxyCODONE HCl/Acetaminophen [Percocet 5-325 mg Tablet] 1 - 2 each PO Q4H PRN #10 tablet 09/26/20 [Rx] Past Medical History - Past Health History Medical/Surgical History: Denies Medical/Surgical History HEENT History: Reports: Other (See Below) Other HEENT History: 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 glasses 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: , 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: 2 - Past Surgical History Head Surgeries/Procedures: Reports: None HEENT Surgical History: Reports: None Female Surgical History: Reports: Section, D&C Social & Family History - Family History Family Medical History: Noncontributory - Tobacco Use Tobacco Use Status *Q: Current Every Day Tobacco User Years of Tobacco use: 10 Packs/Tins Daily: 0.5 - Caffeine Use Caffeine Use: Reports: Coffee Other Caffeine Use: 1 per day - Recreational Drug Use Recreational Drug Use: No - Living Situation & Occupation Living situation: Reports: Occupation: Employed ED ROS GENERAL - Review of Systems Review Of Systems: See Below Constitutional: Reports: Malaise, Weakness, Fatigue, Decreased Appetite (From not sleeping much last night.). Denies: Fever, Chills HEENT: Reports: Other (Numbness in the right side of her tongue.) Respiratory: Reports: No Symptoms Cardiovascular: Reports: No Symptoms Endocrine: Reports: No Symptoms GI/Abdominal: Reports: Nausea. Denies: Vomiting : Reports: Frequency. Denies: Dysuria Musculoskeletal: Reports: No Symptoms Skin: Reports: No Symptoms Neurological: Reports: Dizziness, Headache, Numbness, Tingling (Particularly noted in the right side of her tongue. CT of her head was normal yesterday.), Difficulty Walking (Is mildly off balance with walking.). Denies: Trouble Speaking, Weakness Psychiatric: Reports: No Symptoms Hematologic/Lymphatic: Reports: No Symptoms Immunologic: Reports: No Symptoms - Physical Exam Exam: See Below Exam Limited By: No Limitations General Appearance: Alert, WD/WN, No Apparent Distress, Other (Temperature is 37.1. Heart rate was 119 but came down to 97 after bed rest. Respiratory to 15 with O2 sats of 100% room air. BP 1 3689.) Eye Exam: Bilateral Eye: Normal Inspection, PERRL Throat/Mouth: Normal Inspection, Normal Lips, Normal Teeth, Normal Oropharynx Head Exam: Atraumatic, Normocephalic Neck: Normal Inspection, Supple, Non-Tender, Full Range of Motion. No: Lymphadenopathy (L), Lymphadenopathy (R) Respiratory/Chest: No Respiratory Distress, Lungs Clear, Normal Breath Sounds, No Accessory Muscle Use Cardiovascular: Normal Peripheral Pulses, Regular Rate, Rhythm, No Edema, No Gallop, No Murmur, No Rub GI/Abdominal: Other (Uterine fundus palpable mid abdomen compatible with 16 to 17 weeks gestation.) Neuro Exam (Abbreviated): Alert, Oriented, CN II-XII Intact, Normal Cognition, No Motor/Sensory Deficits DTR: 2+: Bicep (R), Bicep (L) Back Exam: Normal Inspection, Full Range of Motion Extremities: Normal Inspection, Normal Range of Motion, Non-Tender, No Pedal Edema Psychiatric: Normal Affect, Normal Mood Skin Exam: Warm, Dry, Intact, Normal Color, No Rash Course - Vital Signs Last Recorded V/S: Last Vital Signs Temp 36.9 C 09/26/20 12:53 Pulse 80 09/26/20 12:53 Resp 16 09/26/20 12:53 BP 111/71 09/26/20 12:53 Pulse Ox 99 09/26/20 12:53 - Orders/Labs/Meds Orders: Active Orders 24 hr Category Date Time Status Dextrose 5%-Lactated Ringers 1,000 ml Med 09/26/20 10:15 Active IV ASDIRECTED Medication Orders Dextrose/Lactated Ringer's (Dextrose 5%-Lactated Ringers) 1,000 mls @ 999 mls/hr IV ASDIRECTED [facility] Last Admin: 09/26/20 10:46 Dose: 999 mls/hr Documented by: DAI Meds: Medications Generic Name Dose Route Start Last Admin Trade Name Freq PRN Reason Stop Dose Admin Dextrose/Lactated Ringer's 1,000 mls @ 999 mls/hr 09/26/20 10:15 09/26/20 10:46 Dextrose 5%-Lactated Ringers IV 999 mls/hr ASDIRECTED BRIGETTE Administration Discontinued Medications Generic Name Dose Route Start Last Admin Trade Name Lilly PRN Reason Stop Dose Admin Diphenhydramine HCl 25 mg 09/26/20 10:11 09/26/20 10:40 Benadryl IVPUSH 09/26/20 10:12 25 mg ONETIME ONE Administration Hydromorphone HCl 1 mg 09/26/20 10:12 09/26/20 10:44 Dilaudid IVPUSH 09/26/20 10:13 1 mg ONETIME ONE Administration Hydromorphone HCl 0.5 mg 09/26/20 11:34 09/26/20 12:50 Dilaudid IVPUSH 09/26/20 11:35 0.5 mg ONETIME ONE Administration Metoclopramide HCl 7.5 mg 09/26/20 10:12 09/26/20 10:42 Reglan IVPUSH 09/26/20 10:13 7.5 mg ONETIME ONE Administration - Radiology Interpretation Free Text/Narrative:: 25-year-old female presents to the ED with a persistent headache for the last 3 days. She was seen through the ED yesterday where a CT scan of her brain was carried out and was normal. Routine labs were also normal yesterday. Headache has persisted in spite of IV fluids yesterday and medication Benadryl, Zofran, Dilaudid. Patient states headache is constant pulsating and throbbing. Can feel her heartbeat in her head at times. Blood pressure at this time is upper limits of normal with a systolic of 136. She is 16 to 17 weeks gestation clinically. Neuro exam is otherwise normal. Plan D5 LR at open. Given Reglan 7.5 mg IV with Benadryl 25 mg IV and Dilaudid 1 mg IV for headache pain and nausea relief. - Re-Assessments/Exams Free Text/Narrative Re-Assessment/Exam: 09/26/20 11:34 Patient reports headache is mildly improved. No further nausea. Patient will be given further dose of Dilaudid 0.5 mg IV for pain relief. 09/26/20 12:23 Patient heart rate has improved down to 84/min. She has completed a full liter of IV fluids. Patient reported that she did not receive further Dilaudid dose but is documented that she did so shortly after ordering it. It will be given now. Tentatively I will be sending her home with Perc ocet tabs 5 /325 mg 1 or 2 every 4-6 hours as necessary for headache relief x8 tablets. Departure - Departure Time of Disposition: 13:01 Disposition: Home, Self-Care 01 Condition: Fair Clinical Impression: Atypical migraine - Discharge Information *PRESCRIPTION DRUG MONITORING PROGRAM REVIEWED*: Not Applicable *COPY OF PRESCRIPTION DRUG MONITORING REPORT IN PATIENT DEVIN: Not Applicable Prescriptions: oxyCODONE HCl/Acetaminophen [Percocet 5-325 mg Tablet] 1 - 2 each PO Q4H PRN #10 tablet PRN Reason: pain relief. Instructions: General Headache Without Cause, [id number] Referrals: PCP,None [Primary Care Provider] - Forms: ED Department Discharge Additional Instructions: Evaluation in the emergency room today in regards to persistent diffuse headache with associated right-sided numbness of your tongue face and arm. Associated nausea with poor oral intake. CT of the head was done through the ED yesterday and was reported to be normal by radiologist and also on my review today. Heart rate was elevated at the time of admission to the ED at 117. You are currently noted to be 16 to 17 weeks . Chronic nausea and vomiting throughout the requiring Zofran every 6 hours. Neurological exam in the ED was normal. You were treated with a liter of IV fluids and heart rate came down to 88/min. He received Dilaudid 1 mg IV with Reglan 7.5 mg for nausea and headache relief. He received a second dose of Dilaudid 0.5 mg IV for further headache relief. At home continue Zofran 4 mg every 6 hours as you have been doing for nausea relief. You were discharged with Percocet tablets 5/325 mg strength 1 or 2 tablets every 4-6 hours necessary for headache relief as needed. Follow-up with personal care physician if any further problems occur. Continue to rehydrate with fluids such as Gatorade or Powerade to prevent dehydration. Sepsis Event Note (ED) - Evaluation Sepsis Screening Result: No Definite Risk - Focused Exam Vital Signs: Vital Signs Temp Pulse Resp BP Pulse Ox 09/26/20 12:53 36.9 C 80 16 111/71 99 09/26/20 09:12 37.1 C 119 H 15 136/89 100 - My Orders Last 24 Hours: My Active Orders 09/26/20 10:15 Dextrose 5%-Lactated Ringers 1,000 ml IV ASDIRECTED - Assessment/Plan Last 24 Hours: My Active Orders 09/26/20 10:15 Dextrose 5%-Lactated Ringers 1,000 ml IV ASDIRECTED
[2020-09-26] MEDS ORDERED: diphenhydrAMINE 50 MG/ML SDV IVPUSH ONE (10:11)
[2020-09-26] MEDS ORDERED: Metoclopramide 10 MG/2 ML SDV IVPUSH ONE (10:12)
[2020-09-26] MEDS ORDERED: HYDROmorphone 1 MG/ML Syringe IVPUSH ONE (10:12)
[2020-09-26] MEDS ORDERED: Dextrose 5%-Lactated Ringers 1,000 ML IV SCH (10:15)
[2020-09-26] MEDS ORDERED: HYDROmorphone 0.5 MG/0.5 ML Syringe IVPUSH ONE (11:34)
[2020-09-26 14:11] VITALS: BP 107/75; PULSE 74
== END 2020-09-26 13:15 | disposition home or self-care (01) ==
LOC: JD.ED 09:06
DX: O99.352 Diseases of the nervous system complicating pregnancy, second trimester (principal); G43.909 Migraine, unspecified, not intractable, without status migrainosus; O99.332 Smoking (tobacco) complicating pregnancy, second trimester; F17.210 Nicotine dependence, cigarettes, uncomplicated; Z88.1 Allergy status to other antibiotic agents; Z79.899 Other long term (current) drug therapy; Z3A.16 16 weeks gestation of pregnancy
CPT/HCPCS: 96361; 96374; 96375; 96376; 99283; J1170; J1200; J2765; J7121

== ENCOUNTER 2021-07-27 09:28 | Day surgery (SDC) | payer BC ==
--- NOTE | 2021-07-25 13:23 | PCM.PREANE ---
Preanesthetic Assessment - Procedure Proposed Procedure: Laparoscopic Assisted Vaginal Hysterectomy with BS - Anesthesia/Transfusion/Family Hx Anesthesia History: Prior Anesthesia Without Reaction Family History of Anesthesia Reaction: No Transfusion History: No Prior Transfusion(s) Intubation History: Unknown - Review of Systems General: No Symptoms Pulmonary: No Symptoms (Smoker: less than 1/2 ppd for 10 years. ETOH: occasionally) Cardiovascular: No Symptoms, Palpitations (with anxiety) Gastrointestinal: No Symptoms Neurological: No Symptoms, Dizziness (Occasionally) Other: Reports: Easy Bleeding, Easy Bruising, Depression, Anxiety - Physical Assessment NPO Status Date: 07/26/21 NPO Status Time: 23:00 Vital Signs: HR: 87 Sat: 97% Temp: 98.6 B/P: 111/92 Resp: 12 Height: 1.8 m Weight: 74 kg ASA Class: 2 Mental Status: Alert & Oriented x3 Airway Class: Mallampati = 2 Dentition: Reports: Normal Dentition, Caries Thyro-Mental Finger Breadths: 3 Mouth Opening Finger Breadths: 3 ROM/Head Extension: Full Lungs: Clear to Auscultation, Normal Respiratory Effort Cardiovascular: Regular Rate, Regular Rhythm, No Murmurs - Lab Values: All labs reviewed and noted and within acceptable ranges to proceed. - Allergies Allergies/Adverse Reactions: Allergies Allergy/AdvReac Type Severity Reaction Status Date / Time azithromycin Allergy Hives Verified 07/26/21 16:07 - Anesthesia Plan Pre-Op Medication Ordered: None - Acknowledgements Anesthesia Type Planned: General Anesthesia Pt an Appropriate Candidate for the Planned Anesthesia: Yes Alternatives and Risks of Anesthesia Discussed w Pt/Guardian: Yes Pt/Guardian Understands and Agrees with Anesthesia Plan: Yes PreAnesthesia Questionnaire - Past Health History Medical/Surgical History: Denies Medical/Surgical History HEENT History: Reports: Other (See Below) Other 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: , 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 - Past Surgical History Head Surgeries/Procedures: Reports: None HEENT Surgical History: Reports: None Female Surgical History: Reports: Section, D&C - HOME MEDS Home Medications: Home Meds Sertraline [Zoloft] 100 mg PO DAILY 07/26/21 [History] hydrOXYzine HCL [hydrOXYzine] 25 mg PO QID PRN 07/26/21 [History] - CURRENT (IN HOUSE) MEDS Current Meds: Current Medications Lactated Ringer's (Ringers, Lactated) 1,000 mls @ 125 mls/hr IV ASDIRECTED BRIGETTE Stop: 07/27/21 23:00 Lidocaine/Sodium Bicarbonate (Lidocaine 1%/Sod Bicarbonate In Ns 8.4% 1 Ml Syringe) 0.25 ml IDERM ONETIME PRN PRN Reason: Prior to IV Start Stop: 07/27/21 18:00 Sodium Chloride (Sodium Chloride 0.9% 10 Ml Syringe) 10 ml FLUSH ASDIRECTED PRN PRN Reason: Keep Vein Open Stop: 07/27/21 18:00
[~2021-07-27 09:28] MED LIST changes: +Dexamethasone 4 MG/ML 5 ML MDV ONE; +HYDROmorphone 0.5 MG/0.5 ML Syringe ONE; +Ketorolac 30 MG/ML SDV ONE; +Lactated Ringers 1,000 ML IV SCH; +Lactated Ringers 1,000 ML ONE; +Lidocaine 1% 4 ML ONE; +Lidocaine 1%/Sod Bicarbonate in NS 8.4% 1 ML Syringe IDERM PRN; +Midazolam 1 MG/ML 2 ML SDV ONE; +Ondansetron 4 MG/2 ML SDV ONE; +Propofol 200 MG/20 ML SDV ONE; +Rocuronium 50 MG/5 ML Vial ONE; +ceFAZolin 1 GM Vial ONE; +fentaNYL 250 MCG/5 ML SDV ONE
[2021-07-27] MEDS ORDERED: Lidocaine 1% with EPINEPHrine 1:100,000 10 ML MDV ONE (10:06)
[2021-07-27] MEDS ORDERED: Sodium Chloride 0.9% 50 ML SDV ONE (10:06)
[2021-07-27] MEDS ORDERED: Bupivacaine 0.5% 30 ML SDV ONE (10:06)
[2021-07-27] MEDS ORDERED: HYDROmorphone 0.5 MG/0.5 ML Syringe ONE ×2 (11:26)
[2021-07-27] MEDS ORDERED: fentaNYL 100 MCG/2 ML SDV IVPUSH PRN (11:30)
[2021-07-27] MEDS ORDERED: diphenhydrAMINE 50 MG/ML SDV IVPUSH PRN (11:30)
[2021-07-27] MEDS ORDERED: Ondansetron 4 MG/2 ML SDV IVPUSH PRN (11:30)
[2021-07-27] MEDS ORDERED: Midazolam 1 MG/ML 2 ML SDV IVPUSH PRN (11:30)
[2021-07-27] MEDS ORDERED: ePHEDrine 50 MG/ML SDV IVPUSH PRN (11:30)
[2021-07-27] MEDS ORDERED: HYDROmorphone 0.5 MG/0.5 ML Syringe IVPUSH PRN (11:30)
[2021-07-27] MEDS ORDERED: Lactated Ringers 1,000 ML ONE (11:58)
--- NOTE | 2021-07-27 12:55 | PCM.POSTAN ---
POST ANESTHESIA ASSESSMENT - MENTAL STATUS Mental Status: Alert - VITAL SIGNS Vital Signs: Last Vital Signs Temp 98.4 07/27/21 1244 Pulse 106 07/27/21 1244 Resp 13 07/27/21 1244 BP 122/70 07/27/21 1244 Pulse Ox 95% 07/27/21 1244 - RESPIRATORY Respiratory Status: Respiratory Rate WNL, Airway Patent, O2 Saturation Stable, Supplemental Oxygen - CARDIOVASCULAR CV Status: Pulse Rate WNL, Blood Pressure Stable - GASTROINTESTINAL GI Status: No Symptoms - POST OP HYDRATION Hydration Status: Adequate & Stable
--- NOTE | 2021-07-27 13:05 | PCM.OPNOTE ---
- General Post-Op/Procedure Note Date of Surgery/Procedure: 07/27/21 Operative Procedure(s): Laparoscopic-assisted vaginal hysterectomy Findings: Grossly normal-appearing uterus with varicose vein approximately 0.5 cm in size on the left IP ligament and posterior broad ligament of the uterus. Grossly normal-appearing ovaries bilaterally. Normal-appearing liver, gallbladder, appendix and visualized portions of the intestines. Pre Op Diagnosis: Dysmenorrhea, abnormal uterine bleeding and menorrhagia Post-Op Diagnosis: Same Anesthesia Technique: General ET Tube Primary Surgeon: Juan Joya Anesthesia Provider: Kiera Floyd Manager Event: Trip [place] Manager Event: Solomon Resnedez ([email or web address]) Reason Manager Event Was Necessary: Patient safety and reduction of morbidity and mortality Role of Manager Event: Use of laparoscopic instruments during the case. Retraction for visualization. Pathology: Uterus and cervix Fluid Replacement, Intraop: 1,600 Output, Urine Amount: 200 EBL in mLs: 125 Complications: None Condition: Good Free Text/Narrative:: The patient was seen in the preoperative holding area and risks, benefits, indications, and alternatives of the procedure were reviewed with the patient and she desired to proceed with a laparoscopic assisted vaginal hysterectomy, bilateral salpingectomy, possible unilateral or bilateral salpingo-oophorectomy, possible fulguration or excision of endometriosis lesions and possible total abdominal hysterectomy. Consents were reviewed. The patient was taken back to the OR and given general anesthesia with an endotracheal tube which was placed without difficulty. She was placed in dorsal lithotomy position using Yellofin stirrups. She was prepped and draped in normal sterile fashion. A Byers catheter was placed without difficulty. Attention was then turned to her umbilicus and it was injected with 0.5% Marcaine and a 5 mm stab incision was made with a scalpel and a Veress needle was then inserted through the incision. The gas was turned on, with an opening pressure of 6 mmHg. Pneumoperitoneum was continued until 15 mmHg pressure. A 5 mm trocar was then inserted under direct visualization through the incision without difficulty. Attention was then turned to the patient's right lower quadrant where an avascular space approximately alf between the ASIS and the umbilicus was identified. Local anesthetic was injected and a 5 mm incision was made with a scalpel. A 5 mm trocar was then inserted under direct visualization of the laparoscope. Attention was then turned to the left lower quadrant, where again an avascular portion of the abdominal wall was identified approximately alf between the ASIS and the umbilicus. Local anesthetic was injected and a scalpel was used to make a 5 mm incision. A 5 mm trocar was inserted under direct visualization with the laparoscope. Attention was then turned to the pelvis where the uterus was visualized and noted be normal in appearance with surgically absent bilateral fallopian tubes and normal-appearing bilateral ovaries. The left infundibulopelvic ligament had an approximately 0.5 cm varicose vein running towards the uterus and continuing along the posterior broad ligament of the left side of the uterus. The atraumatic grasper was then removed from the right lower trocar and a Enseal vessel sealing device was introduced and was used to transect the right round ligament. The right round ligament was then transected using the Enseal vessel sealing device. The utero- ovarian ligament was then transected using the Enseal vessel sealing device. The right side of the uterus and broad ligament were then transected using the Enseal vessel sealing device until the level of the uterovesical peritoneal reflection. A bladder flap was created using the Enseal vessel sealing device. This was repeated on the patient's left side. The left round ligament and u tero-ovarian ligament were transected using Enseal vessel sealing device and the broad ligament was transected to the level of the uterovesical peritoneal reflection. The pelvis was then inspected for hemostasis at this time and hemostasis was noted. All instruments were removed from the abdomen. Attention was then turned to the patient's perineum where a weighted speculum was placed into the vagina and a Saul retractor was used to visualize the cervix. The cervix was grasped with a double-tooth tenaculum. The cervical reflection point was then injected circumferentially with 0.25% lidocaine with epinephrine. The cervix was then circumferentially incised with a scalpel. The bladder was then dissected off the pubovesical cervical fascia anteriorly with Metzenbaum scissors. The same procedure was performed posteriorly and the posterior cul-de-sac was entered sharply without difficulty using Metzenbaum scissors. At this point, an Enseal vessel sealing device was placed over the uterosacral ligaments on the patient's left side. These were cauterized and ligated with the device. This was repeated on the patient's right side. Hemostasis was assured. The cardinal ligaments were then clamped on both sides using the Enseal vessel sealing device, cauterized and transected with the device. The anterior cul-de-sac was able to be entered sharply at this time. The remainder of the broad ligament on the bilateral sides of was clamped, cauterized and transected using the Enseal vessel sealing device. Excellent hemostasis was noted. The cervix and uterus was able to be delivered at this time. The posterior vaginal cuff was closed with running locked sutures of 0 Monocryl. The vaginal cuff was then closed in a horizontal fashion using running locked sutures with 0 Monocryl suture. All instruments were removed from the vagina. Attention was then turned to the abdomen where a laparoscope was inserted and was used to check for hemostasis. Hemostasis was noted at this time. The case was complete at this time. The gas was then evacuated from the peritoneum and trocars removed. These were closed using 4-0 Monocryl suture and Dermabond. The patient was awoken from general anesthesia and taken to the PACU for recovery in stable condition. She will be discharged to home once she is able to meet all postoperative milestones including tolerating small amount of oral intake and liquids, ambulate without difficulty, her pain controlled with oral medications and able to void without difficulty. She will follow-up in the clinic in 2 weeks or earlier as needed. Sponge, lap, needle, and instrument counts were correct x 2. Review of images from case IMG 001: Right superior portion of the uterus near the fallopian tube insertion point with unknown lesion. IMG 002: Right upper quadrant with normal right lobe of the liver and normal- appearing gallbladder IMG 003: Left upper quadrant of the abdomen with grossly normal-appearing liver and stomach. IMG 004: Grossly normal-appearing right ovary. Grossly normal-appearing portion of the uterus that was visualized. IMG 005: Grossly normal-appearing left ovary IMG 006: Left IP ligament with approximately 0.5 cm varicose vein noted along the length of the IP ligament. IMG 007: Grossly normal-appearing uterus with visualized portion of the varicose vein on the left IP ligament. IMG 008: Left posterior broad ligament with continuation of the varicose vein noted. IMG 009: Posterior cul-de-sac without evidence of endometriosis lesions or scarring. IMG 010: Anterior cul-de-sac with small amount of scarring likely from previous sections. IMG 011: Left pelvic sidewall with hemostasis noted after hysterectomy. IMG 012: Midline portion of the pelvis after hysterectomy with hemostasis noted. IMG 013: Right pelvic sidewall with hemostasis noted after hysterectomy IMG 014: Grossly normal-appearing appendix IMG 015: Right lower quadrant trocar port site with hemostasis noted after removal of the trocar
--- NOTE | 2021-07-27 13:40 | PCM48HPAN ---
Post Anesthesia Note - EVALUATION WITHIN 48HRS OF ANESTHETIC Vital Signs in Normal Range: Yes Patient Participated in Evaluation: Yes Respiratory Function Stable: Yes Airway Patent: Yes Cardiovascular Function Stable: Yes Hydration Status Stable: Yes Pain Control Satisfactory: Yes Nausea and Vomiting Control Satisfactory: Yes Mental Status Recovered: Yes Vital Signs: Last Vital Signs Temp 36.9 C 07/27/21 13:00 Pulse 72 07/27/21 13:15 Resp 13 07/27/21 13:15 BP 122/81 07/27/21 13:15 Pulse Ox 100 07/27/21 13:16
[2021-07-27] MEDS ORDERED: Acetaminophen/oxyCODONE 325-5 MG Tab PO SCH (14:15)
[2021-07-27 14:52] VITALS: BP 126/87; PULSE 64
== END 2021-07-27 14:54 | disposition home or self-care (01) ==
LOC: JD.SDS 09:28
PROVIDERS: ATTEND Obstetrics & Gynecology
DX: N85.8 Other specified noninflammatory disorders of uterus (principal); N73.6 Female pelvic peritoneal adhesions (postinfective); N94.6 Dysmenorrhea, unspecified; N93.9 Abnormal uterine and vaginal bleeding, unspecified; F17.200 Nicotine dependence, unspecified, uncomplicated; Z88.8 Allergy status to other drugs, medicaments and biological substances; Z79.899 Other long term (current) drug therapy
CPT/HCPCS: 36415; 58550; 81003; 81025; 86850; 86900; 86901; A9270; J0690; J1100; J1170; J1885; J2250; J2405; J2704; J2710; J3010; J3490; J7120; 00944

== ENCOUNTER 2021-07-31 18:57 | Emergency (ER) | payer BC ==
[2021-07-31 19:45] VITALS: BP 134/100; PULSE 100
--- NOTE | 2021-07-31 20:04 | EDM.PDOC ---
ED HPI GENERAL MEDICAL PROBLEM - General Chief Complaint: Skin Complaint Stated Complaint: POST OP HYSTERECTOMY INCISIONS INFECTED Time Seen by Provider: 07/31/21 19:36 Source of Information: Reports: Patient History Limitations: Reports: No Limitations - History of Present Illness INITIAL COMMENTS - FREE TEXT/NARRATIVE: Mrs. Horvath is a pleasant 26-year-old woman who now presents the ED concerned that she may have a postoperative surgical wound infection. She states that she underwent a laparoscopic-assisted vaginal hysterectomy this past 07/27/2021. She was discharged home the same day. She was prescribed Percocet and advised to take docusate and ibuprofen, but she was not prescribed any antibiotics. She states that she developed some lower abdominal discomfort yesterday, then noticed a serosanguineous drainage from her right lower quadrant laparoscopic wound this morning. She took some Percocet this afternoon, which did not help with her pain. No recent fever. She did not contact her Inventory Representative, rather, texted him that she would be coming to the ED. Here in the ED, the patient's initial BP is found to be slightly elevated at 134/101, otherwise, she is hemodynamically stable, afebrile, saturating 100% on room air. She appears to be comfortable, in no acute distress. Prior to Friday, the patient denies having a recent fever, chills, sore throat, ear pain, nasal or sinus congestion, cough, dyspnea, chest pain, palpitations, nausea, vomiting, constipation, diarrhea, abdominal pain, urinary symptoms, recent weight gain or weight loss, recent bloody bowel movements or black bowel movements, recent joint aches, headaches, or rashes. The patient does not have a PCP. Her Inventory Representative is Dr. Juan Joya. She has not received a COVID vaccination. Lower Abdomen Pain Score (Numeric/FACES): 7 - Related Data Allergies Allergy/AdvReac Type Severity Reaction Status Date / Time azithromycin Allergy Hives Verified 07/31/21 19:36 Home Meds: Home Meds Sertraline [Zoloft] 100 mg PO DAILY 07/26/21 [History] hydrOXYzine HCL [hydrOXYzine] 25 mg PO QID PRN 07/26/21 [History] Acetaminophen/oxyCODONE [Percocet 325-5 MG] 1 - 2 each PO Q6H PRN #30 tab 07/27/21 [Rx] Docusate Sodium [Colace] 100 mg PO BID #60 capsule 07/27/21 [Rx] Ibuprofen 600 mg PO Q6H PRN #60 tablet 07/27/21 [Rx] Past Medical History HEENT History: Reports: Impaired Vision (wears glasses) 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 FRY History: Reports: Spontaneous (x 3) : 6 Para: 3 Psychiatric History: Reports: Anxiety, Depression - Past Surgical History HEENT Surgical History: Reports: Oral Surgery (dental extraction) Female Surgical History: Reports: Section (x 3), D&C (x 1), Hysterectomy (partial) Social & Family History - Tobacco Use Tobacco Use Status *Q: Current Every Day Tobacco User Years of Tobacco use: 20 Packs/Tins Daily: 0.5 Packs/Tins Daily Comment: Down from 1.5 ppd Tobacco Use Comment: Started smoking 2000 - Caffeine Use Caffeine Use: Reports: Coffee Other Caffeine Use: 1 per day - Alcohol Use Alcohol Use History: Yes Alcohol Use Frequency: Socially - Recreational Drug Use Recreational Drug Use: Yes Drug Use in Last 12 Months: No Recreational Drug Type: Reports: Marijuana/Hashish (last smoked 2013) - Living Situation & Occupation Living situation: Reports: , with Spouse, with Family (3 kids) Occupation: Unemployed ED ROS GENERAL - Review of Systems Review Of Systems: Comprehensive ROS is negative, except as noted in HPI. ED EXAM, GENERAL - Physical Exam Exam: See Below Exam Limited By: No Limitations General Appearance: Alert, WD/WN, No Apparent Distress Eye Exam: Bilateral Eye: EOMI, Normal Inspection Ears: Normal External Exam, Hearing Grossly Normal Nose: Normal Inspection Throat/Mouth: Normal Inspection, Normal Lips, Normal Voice, No Airway Compromise Head: Atraumatic, Normocephalic Neck: Normal Inspection, Full Range of Motion Respiratory/Chest: No Respiratory Distress, Lungs Clear, Normal Breath Sounds, No Accessory Muscle Use Cardiovascular: Normal Peripheral Pulses, Regular Rate, Rhythm, No Edema, No Gallop, No JVD, No Murmur, No Rub Peripheral Pulses: 3+: Radial (L), Radial (R) GI/Abdominal: Normal Bowel Sounds, Soft, No Organomegaly, No Distention, No Abnormal Bruit, No Mass, Tender (Mild manuel-incisional tenderness, otherwise nontender), Other (The right lower quadrant laparoscopic wound does not have a scab, but is not currently draining any fluid. The left lower quadrant laparoscopic wound has a small scab. No fluid drainage. Neither wound has associated erythema, swelling, or calor.) Back Exam: Normal Inspection, Full Range of Motion, NT Extremities: Normal Inspection, Normal Range of Motion, No Pedal Edema, Normal Capillary Refill Neurological: Alert, Oriented, Normal Cognition, No Motor/Sensory Deficits Psychiatric: Normal Affect Skin Exam: Warm, Dry, Intact, Normal Color, No Rash Course - Vital Signs Last Recorded V/S: Last Vital Signs Temp 36.8 C 07/31/21 19:38 Pulse 100 07/31/21 19:38 Resp 15 07/31/21 19:38 BP 134/100 H 07/31/21 19:38 Pulse Ox 100 07/31/21 19:38 - Re-Assessments/Exams Free Text/Narrative Re-Assessment/Exam: 07/31/21 19:59 As above, the patient underwent a laparoscopic-assisted vaginal hysterectomy this past Friday, being discharged home the same day. She reports having lower abdominal pain not adequately treated by Percocet since yesterday, then seeing some serosanguineous drainage from the right lower quadrant laparoscopic wound this morning. She is also concerned that the left lower quadrant laparoscopic wound is infected. On examination, however, the patient's abdomen is soft with normoactive bowel sounds, and there is no suggestion whatsoever of an infection - neither wound has any associated swelling, erythema, or calor. They both appear to be healing very well. The right wound does not have a scab over it, however, is not currently draining any fluid, while the left wound has a small scab over it, and is also dry. I explained that from my perspective, I do not see that any further evaluation is necessary. I explained that serosanguineous fluid seeps into the wound, and carries the fibroblasts that will eventually form the scar that will heal the wound, however, because the wound is not tightly sealed, there will inevitably be some leakage of fluid. This is normal, not a sign of an infection, and is no reason for concern. I offered to call Dr. Joya to see if he would want us to run any tests, so long as the patient is in the ED. She did not want me to. I will therefore discharge her home with the recommendation that she follow-up with Dr. Joya. Departure - Departure Time of Disposition: 20:01 Disposition: Home, Self-Care 01 Condition: Good Clinical Impression: Encounter for postoperative wound check - Discharge Information *PRESCRIPTION DRUG MONITORING PROGRAM REVIEWED*: Not Applicable *COPY OF PRESCRIPTION DRUG MONITORING REPORT IN PATIENT DEVIN: Not Applicable Referrals: Juan Joya MD [Primary Care Provider] - Forms: ED Department Discharge Additional Instructions: You were seen in the emergency room over concern about your lower right abdominal surgical wound weeping fluid, and that your lower left surgical wound may be infected. On examination, both wounds appear to be healing normally. There is no sign of an infection. We recommend that you continue to care for your wounds as directed in your postoperative discharge instructions. We recommend that you follow-up with Dr. Joya at the next available appointment. If any other problems, please do not hesitate to return to the ER.
== END 2021-07-31 20:16 | disposition home or self-care (01) ==
LOC: JD.ED 18:57
DX: T81.40XA Infection following a procedure, unspecified, initial encounter (principal); Z48.00 Encounter for change or removal of nonsurgical wound dressing; Z88.1 Allergy status to other antibiotic agents; Z72.0 Tobacco use
CPT/HCPCS: 99282; 99283

== ENCOUNTER 2023-10-10 12:39 | Emergency (ER) | payer BC ==
[2023-10-10 12:57] VITALS: BP 140/96; PULSE 103
[2023-10-10] MEDS ORDERED: Metoclopramide 10 MG/2 ML SDV IVPUSH ONE (13:08)
[2023-10-10] MEDS ORDERED: Ketorolac 30 MG/ML SDV IVPUSH ONE (13:08)
[2023-10-10] MEDS ORDERED: diphenhydrAMINE 50 MG/ML SDV IVPUSH ONE (13:08)
[2023-10-10] MEDS ORDERED: HYDROmorphone 0.5 MG/0.5 ML Syringe IVPUSH ONE (13:11)
[2023-10-10] MEDS ORDERED: Sodium Chloride 0.9% 1,000 ML IV SCH (13:15)
[2023-10-10] MEDS ORDERED: Magnesium Sulfate/Water 2 GM/50 ML BAG IV ONE (14:41)
[2023-10-10] MEDS ORDERED: Magnesium Sulfate/Water 2 GM in Premix Bag 1 BAG IV ONE (14:42)
== END 2023-10-10 15:40 | disposition home or self-care (01) ==
LOC: JD.ED 12:39
DX: G43.909 Migraine, unspecified, not intractable, without status migrainosus (principal); Z88.8 Allergy status to other drugs, medicaments and biological substances; Z79.899 Other long term (current) drug therapy
CPT/HCPCS: 96361; 96365; 96375; 99283; J1170; J1200; J1885; J2765; J3475; J7030

== ENCOUNTER 2024-06-25 12:20 | Emergency (ER) | payer BC, MEDICAID ==
[2024-06-25] MEDS: Sodium Chloride 0.9% 10 ML Syringe FLUSH PRN (13:14)
[2024-06-25] MEDS: Sodium Chloride 0.9% 1,000 ML IV STA (13:15)
[2024-06-25] MEDS: Ondansetron 4 MG/2 ML SDV IVPUSH ONE (13:18)
[2024-06-25] MEDS: Ketorolac 30 MG/ML SDV IVPUSH ONE (13:19)
[2024-06-25] MEDS: diphenhydrAMINE 50 MG/ML SDV IVPUSH ONE (13:20)
[2024-06-25] MEDS: Famotidine 20 MG/2 ML SDV IVPUSH ONE (13:23)
[2024-06-25 14:23] VITALS: BP 111/78; PULSE 74
== END 2024-06-25 14:20 | disposition home or self-care (01) ==
LOC: JD.ED 12:20
DX: L50.9 Urticaria, unspecified (principal); Z88.1 Allergy status to other antibiotic agents; Z79.899 Other long term (current) drug therapy; Z90.710 Acquired absence of both cervix and uterus
CPT/HCPCS: 96374; 96375; 99283; J1200; J1885; J2405; J3490; J7030; 99282

== ENCOUNTER 2024-07-03 19:34 | Emergency (ER) | payer BC ==
[2024-07-03] MEDS ORDERED: Sodium Chloride 0.9% 10 ML Syringe FLUSH PRN (19:59)
[2024-07-03 20:05] LABS: BASOPHILS PERCENT AUTO 0.1 % (0.0-1.0); EOSINOPHILS ABSOLUTE AUTO 0.1 K/mm3 (0.0-0.4); EOSINOPHILS PERCENT AUTO 0.4 % (0.0-6.0); HEMATOCRIT 42.5 % (37.0-47.0); HEMOGLOBIN 14.2 gm/dl (12.0-16.0); IMMATURE GRAN ABSOLUTE AUTO 0.11 K/mm3 (0.00-0.05); IMMATURE GRAN PERCENT AUTO 0.7 % (0.0-0.4); LYMPHOCYTES ABSOLUTE AUTO 4.4 K/mm3 (1.0-4.8); LYMPHOCYTES PERCENT AUTO 28.3 % (24.0-44.0); MEAN CORPUSCULAR HEMOGLOBIN 30.7 pg (28.0-32.0); MEAN CORPUSCULAR HGB CONC 33.4 g/dl (32.0-36.0); MEAN CORPUSCULAR VOLUME 91.8 fl (83.0-99.0); MEAN PLATELET VOLUME 10.7 fl (9.4-12.3); MONOCYTES ABSOLUTE AUTO 0.6 K/mm3 (0.0-0.8); MONOCYTES PERCENT AUTO 3.8 % (0.0-8.0); NEUTROPHILS ABSOLUTE AUTO 10.5 K/mm3 (1.8-7.7); NEUTROPHILS PERCENT AUTO 66.7 % (41.0-71.0); PLATELET COUNT,PLT 214 K/mm3 (150-400); RED BLOOD CELL COUNT 4.63 M/mm3 (4.10-5.30); WHITE BLOOD CELL COUNT,WBC 15.68 K/mm3 (3.9-11.3)
[2024-07-03 20:19] LABS: A/G RATIO 1.1 (1-2); ALANINE AMINOTRANSFERASE,ALT 22 U/L (14-59); ALKALINE PHOSPHATASE 74 U/L (46-116); ANION GAP 14.7 (5-15); ASPARTATE AMNIOTRANSFERASE,AST 16 U/L (15-37); BILIRUBIN TOTAL 0.3 mg/dL (0.2-1.0); BLOOD UREA NITROGEN,BUN 12 mg/dL (7-18); BUN/CREATININE RATIO 17.1 (14-18); CALCIUM 9.1 mg/dL (8.5-10.1); CARBON DIOXIDE,CO2 23 mEq/L (21-32); CHLORIDE,CL 102 mEq/L (98-107); CREATININE 0.7 mg/dL (0.55-1.02); ESTIMATED GFR 119 mL/min (>60); GLUCOSE RANDOM 105 mg/dL (70-99); POTASSIUM,K 3.7 mEq/L (3.5-5.1); PROTEIN TOTAL,TP 7.5 g/dl (6.4-8.2); SODIUM,NA 136 mEq/L (136-145)
[2024-07-03] MEDS: EPINEPHrine 1 MG/ML SDV IM ONE (20:33)
[2024-07-03] MEDS: HYDROmorphone 0.5 MG/0.5 ML Syringe IVPUSH ONE ×2 (20:33→21:03)
[2024-07-03] MEDS: Famotidine 20 MG/2 ML SDV IVPUSH ONE (20:33)
[2024-07-03] MEDS: diphenhydrAMINE 50 MG/ML SDV IVPUSH ONE (20:33)
[2024-07-03] MEDS: methylPREDNISolone Sodium Succinate 125 MG/2 ML SDV IVPUSH ONE (20:34)
[2024-07-03 22:25] VITALS: BP 123/78; PULSE 82
== END 2024-07-03 22:25 | disposition home or self-care (01) ==
LOC: JD.ED 19:34
DX: L50.0 Allergic urticaria (principal); Z88.1 Allergy status to other antibiotic agents; Z79.899 Other long term (current) drug therapy; Z90.710 Acquired absence of both cervix and uterus
CPT/HCPCS: 36415; 80053; 85025; 96372; 96374; 96375; 96376; 99283; J0171; J1170; J1200; J2919; J3490